=== PATIENT | female | born 1965 | race Caucasian/White ===

== ENCOUNTER 2017-04-01 20:11 | Emergency (ER) | payer MEDICAID ==
[~2017-04-01] VITALS: Ht 157.5 cm; Wt 81.6 kg
[2017-04-02 02:05] VITALS: BP 137/91
== END 2017-04-02 02:05 | disposition home or self-care (01) ==
LOC: ED 20:11
DX: M25.562 Pain in left knee (principal); I10 Essential (primary) hypertension; M32.9 Systemic lupus erythematosus, unspecified
CPT/HCPCS: J1170; Q0162

== ENCOUNTER 2020-08-02 16:49 | Emergency (ER) | payer OTHER ==
[~2020-08-02] VITALS: Ht 157.5 cm; Wt 90.7 kg
[2020-08-02 17:07] VITALS: Ht 157.5 cm; Wt 90.7 kg
[2020-08-02 18:15] VITALS: BP 177/100
[2020-08-02 18:36] LABS: BASOPHIL % 0.5 % (0.2-1.3); PLATELET COUNT 369 x10^3mcL (179-408); RED CELL DISTRIBUTION WIDTH 12.5 % (12.3-17.7)
[2020-08-02 18:47] LABS: ALBUMIN 3.5 g/dL (3.4-5.0); ALKALINE PHOSPHATASE 114 U/L (46-116); ALT/SGPT 40 U/L (14-59); AST/SGOT 23 U/L (15-37); BILIRUBIN TOTAL 0.3 mg/dL (0.20-1.00); CALCIUM 9.4 mg/dL (8.5-10.1); CARBON DIOXIDE 26.5 mmol/L (21-32); CHLORIDE SERUM 99 mmol/L (98-107); GFR1 > 60 mL/min; GLUCOSE SERUM 89 mg/dL (74-106); POTASSIUM SERUM 3.6 mmol/L (3.5-5.1); SODIUM SERUM 137 mmol/L (136-145); TOTAL PROTEIN, SERUM 7.8 g/dL (6.4-8.2)
== END 2020-08-02 20:30 | disposition home or self-care (01) ==
LOC: ED 16:49
PROVIDERS: Student in an Organized Health Care Education/Training Program
DX: K04.7 Periapical abscess without sinus (principal)
CPT/HCPCS: J1885; J3490; J7030